=== PATIENT | female | born 1935 | race Caucasian/White ===

== ENCOUNTER → 2017-03-03 | Outpatient (CLI) | payer MEDICARE, BC ==
--- NOTE | 2017-03-11 09:52 | MM ---
Reason for exam: history of breast cancer, conservation therapy. Last mammogram was performed 1 year ago. History: Patient is postmenopausal and has history of breast cancer at age 76. Lumpectomy of the left breast, 2011. Chemotherapy, 2011. Radiation therapy of the left breast, 2011. Physical Findings: Nurse did not find any significant physical abnormalities on exam. MG 3D Diag Mammo W/Cad TARAS Bilateral CC and MLO view(s) were taken. Prior study comparison: February 28, 2016, mammogram, performed at [place]. September 09, 2015, mammogram, performed at [place]. The breast tissue is heterogeneously dense. This may lower the sensitivity of mammography. Finding #1: There is stable architectural distortion in the left breast consistent with known excisional biopsy. Finding #2: There are typically benign round calcifications in both breasts. Previous mammotome biopsy in the left breast. There is no discrete abnormality. These results were verbally communicated with the patient on 03/11/17. ASSESSMENT: Benign, BI-RAD 2 RECOMMENDATION: Follow-up diagnostic mammogram of both breasts in 1 year.
== END | disposition home or self-care (01) ==
LOC: RADMAMWWP 13:39
PROVIDERS: ATTEND Internal Medicine Hematology & Oncology
DX: Z85.3 Personal history of malignant neoplasm of breast (principal)
CPT/HCPCS: G0204; G0279

== ENCOUNTER → 2018-03-04 | Outpatient (CLI) | payer BC, MEDICARE ==
--- NOTE | 2018-03-05 08:32 | MM ---
Reason for exam: additional evaluation requested from prior study. Last mammogram was performed 1 year ago. History: Patient is postmenopausal and has history of breast cancer at age 76. Lumpectomy of the left breast, 2011. Chemotherapy, 2011. Radiation therapy of the left breast, 2011. Took progesterone for 1 year beginning at age 48. Physical Findings: Nurse did not find any significant physical abnormalities on exam. MG 3D Diag Mammo W/Cad TARAS Bilateral CC and MLO view(s) were taken. Prior study comparison: March 03, 2017, bilateral MG 3d diag mammo w/cad TARAS. February 28, 2016, mammogram, performed at [place]. The breast tissue is heterogeneously dense. This may lower the sensitivity of mammography. Finding: There is an equal density (isodense), circumscribed, with partially obscured lobulated mass in the 12 o'clock middle position of the right breast. Previous mammotome biopsy in the left breast. There is a chronic nodularity in the right breast. Asymmetric breast tissue greater in the right breast. New finding since March 03, 2017 and February 28, 2016. These results were verbally communicated with the patient and result sheet given to the patient on 03/04/18. ASSESSMENT: Incomplete: need additional imaging evaluation, BI-RAD 0 RECOMMENDATION: Ultrasound of the right breast.
--- NOTE | 2018-03-05 08:33 | USB ---
Reason for exam: additional evaluation requested from abnormal screening. History: Patient is postmenopausal and has history of breast cancer at age 76. Lumpectomy of the left breast, 2012. Chemotherapy, 2012. Radiation therapy of the left breast, 2012. Took progesterone for 1 year beginning at age 48. US Breast Limited RT Right breast ultrasound demonstrates a 4 x 4 x 4mm oval, cystic lesion at 12 o'clock and a 9 x 6 x 8mm oval, cystic lesion at 1 o'clock, 3.5cm from nipple. These results were verbally communicated with the patient and result sheet given to the patient on 03/04/18. ASSESSMENT: Probably benign, BI-RAD 3 RECOMMENDATION: Follow-up diagnostic mammogram of the right breast in 6 months.
== END | disposition home or self-care (01) ==
LOC: RADMAMWWP 12:53
PROVIDERS: ATTEND Internal Medicine Hematology & Oncology
DX: Z08 Encounter for follow-up examination after completed treatment for malignant neoplasm (principal); Z85.3 Personal history of malignant neoplasm of breast
CPT/HCPCS: 77066; 76642; G0279

== ENCOUNTER 2018-06-02 11:25 | Inpatient (IN) | payer MEDICARE, BC ==
[2018-06-02] MEDS ORDERED: MECLIZINE 12.5 MG TAB PO STA (12:48)
--- NOTE | 2018-06-02 12:53 | ED ---
General Adult HPI - General Chief complaint: Fall Stated complaint: Fell in shower Time Seen by Provider: 06/02/18 12:00 Source: patient, RN notes reviewed Mode of arrival: wheelchair Limitations: no limitations - History of Present Illness Initial comments: This is a 3-year-old female who came in for evaluation of dizziness and fall. She states she had the onset of dizziness this morning. He states he fell sometime during the night and had difficulty getting up later when shopping and then after being in a pool been in the shower she fell in the shower she hit her head she denies having loss of consciousness she denies any head neck or back pain loss of function to her upper or lower extremities she just generally feels weak. She has no recent history of cold or flu or strokes. - Related Data Home Medications Medication Instructions Recorded Confirmed Gabapentin [Neurontin] 300 mg PO TID 06/02/18 06/02/18 Allergies Allergy/AdvReac Type Severity Reaction Status Date / Time Penicillins Allergy Unknown Verified 06/02/18 12:42 Sulfa (Sulfonamide Allergy Unknown Verified 06/02/18 12:42 Antibiotics) Review of Systems ROS Statement: Those systems with pertinent positive or pertinent negative responses have been documented in the HPI. ROS Other: All systems not noted in ROS Statement are negative. Past Medical History Additional Past Medical History / Comment(s): neuropathy History of Any Multi-Drug Resistant Organisms: None Reported Past Surgical History: Appendectomy Past Psychological History: No Psychological Hx Reported Smoking Status: Never smoker Past Alcohol Use History: None Reported Past Drug Use History: None Reported General Exam - General Exam Comments Initial Comments: This is a well-developed well-nourished awake alert oriented 3 female Limitations: no limitations General appearance: alert, in no apparent distress Head exam: Present: atraumatic, normocephalic, normal inspection Eye exam: Present: normal appearance, PERRL, EOMI. Absent: scleral icterus, conjunctival injection, periorbital swelling ENT exam: Present: mucous membranes dry Neck exam: Present: normal inspection. Absent: tenderness, meningismus, lymphadenopathy Respiratory exam: Present: normal lung sounds bilaterally. Absent: respiratory distress, wheezes, rales, rhonchi, stridor Cardiovascular Exam: Present: regular rate, normal rhythm, normal heart sounds. Absent: systolic murmur, diastolic murmur, rubs, gallop, clicks GI/Abdominal exam: Present: soft, normal bowel sounds. Absent: distended, tenderness, guarding, rebound, rigid Extremities exam: Present: normal inspection, full ROM, normal capillary refill. Absent: tenderness, pedal edema, joint swelling, calf tenderness Back exam: Present: normal inspection Neurological exam: Present: alert, oriented X3, CN II-XII intact Psychiatric exam: Present: normal affect, normal mood Skin exam: Present: warm, dry, intact, normal color. 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 Interval to 10 QRS duration 116 daily since QTC 348/428 left exodeviation poor R-wave progression artifact is present) Disposition Referrals: Artis Mata MD [Primary Care Provider] - 1-2 days
[2018-06-02 13:21] LABS: Basophils % (A) 0 %; Eosinophils % (A) 0 %; HCT 45.1 % (34.0-46.0); HGB 15.1 gm/dL (11.4-16.0); Lymphocytes # (A) 0.7 k/uL (1.0-4.8); Lymphocytes % (A) 8 %; MCH 33.2 pg (25.0-35.0); MCHC 33.6 g/dL (31.0-37.0); MCV 98.8 fL (80.0-100.0); Mean Platelet Volume 7.6; Monocytes # (A) 0.5 k/uL (0-1.0); Monocytes % (A) 6 %; Neutrophils % (A) 85 %; Platelet Count 175 k/uL (150-450); RBC 4.57 m/uL (3.80-5.40); WBC 9.4 k/uL (3.8-10.6)
[2018-06-02 13:32] LABS: ALT 26 U/L (9-52); AST 33 U/L (14-36); Albumin 4.9 g/dL (3.5-5.0); Alkaline Phosphatase 46 U/L (38-126); Amylase 49 U/L (30-110); Anion Gap 13 mmol/L; Blood Urea Nitrogen 13 mg/dL (7-17); Calcium 9.6 mg/dL (8.4-10.2); Carbon Dioxide 26 mmol/L (22-30); Chloride 96 mmol/L (98-107); Glucose 100 mg/dL (74-99); Lipase 28 U/L (23-300); Magnesium 2.1 mg/dL (1.6-2.3); Potassium 4.5 mmol/L (3.5-5.1); Sodium 135 mmol/L (137-145); Total Bilirubin 0.9 mg/dL (0.2-1.3); Total Protein 7.6 g/dL (6.3-8.2)
[2018-06-02 13:52] LABS: Creatine Kinase 87 U/L (30-135)
[2018-06-02 13:56] LABS: Glucose,Whole Blood 100 mg/dL (75-99)
--- NOTE | 2018-06-02 13:56 | XR ---
EXAMINATION TYPE: XR chest 2V DATE OF EXAM: 06/02/2018 COMPARISON: NONE HISTORY: Weakness TECHNIQUE: Frontal and lateral views of the chest are obtained. FINDINGS: There is no focal air space opacity, pleural effusion, or pneumothorax seen. The cardiac silhouette size is upper limits of normal. Pulmonary hyperinflation may be on the basis of underlyin g COPD. The osseous structures are intact. There is diffuse osseous demineralization. IMPRESSION: No acute cardiopulmonary process.
--- NOTE | 2018-06-02 14:00 | CT ---
EXAMINATION TYPE: CT brain wo con DATE OF EXAM: 06/02/2018 COMPARISON: None HISTORY: Fell in shower, trauma and pain CT DLP: 1058 mGycm Automated exposure control for dose reduction was used. Helical acquisition through the brain. FINDINGS: Insular cortex on the right shows decreased attenuation as compared to the left, there is f ocal low attenuation somewhat increased in size as compared to the left. Cortical atrophy is likely age-related. Calvarium is intact. Orbits show symmetric appearance. Mastoid air cells and paranasal s inuses are well aerated. Periventricular white matter shows patchy low attenuation. No hemorrhage or hydrocephalus. Lacunar infarcts suspected within the putamen on the left appears chronic. IMPRESSION: DIFFICULT TO EXCLUDE SUBACUTE INFARCT, BRAIN MRI MAY BE OF BENEFIT, CORRELATE. NO ACUTE HEMORRHAGE. T HERE ARE CHANGES OF CHRONIC SMALL VESSEL ISCHEMIA, AGE RELATED ATROPHY.
[2018-06-02 14:03] LABS: Creatine Kinase MB 0.6 ng/mL (0.0-2.4); Troponin I <0.012 ng/mL (0.000-0.034)
[2018-06-02 14:35] LABS: Amorphous Sediment,Urine Rare /hpf; Appearance,Urine Clear (Clear); Bilirubin,Urine Negative (Negative); Blood,Urine Negative (Negative); Color,Urine Yellow; Glucose,Urine (UA) Negative (Negative); Ketones,Urine Negative (Negative); Leukocyte Esterase,Urine Trace (Negative); Mucus,Urine Rare /hpf; Nitrite,Urine Negative (Negative); PH, Urine 6.5 (5.0-8.0); Protein,Urine Trace (Negative); Specific Gravity,Urine 1.014 (1.001-1.035); Urobilinogen,Urine <2.0 mg/dL (<2.0); WBC,Urine 3 /hpf (0-5)
[2018-06-02 18:37] VITALS: BMI 23.9
[2018-06-02] MEDS ORDERED: ALPRAZolam 0.25 MG TAB PO PRN (21:11)
[2018-06-02] MEDS ORDERED: ONDANSETRON 4 MG/2 ML VIAL IVP PRN (21:11)
[2018-06-02] MEDS ORDERED: MELATONIN 3 MG TABLET PO PRN (21:11)
[2018-06-02] MEDS ORDERED: MAGNESIUM HYDROXIDE 2,400 MG/10 ML CUP PO PRN (21:11)
[2018-06-02] MEDS ORDERED: LACTULOSE 20 GM/30 ML CUP PO PRN (21:11)
[2018-06-02] MEDS ORDERED: CALCIUM CARBONATE 500 MG CHEWABLE PO PRN (21:11)
[2018-06-02] MEDS: ACETAMINOPHEN TAB 325 MG TAB PO PRN (22:05)
[2018-06-02] MEDS: GABAPENTIN 300 MG CAP PO SCH (22:05)
--- NOTE | 2018-06-02 23:09 | HP ---
HISTORY AND PHYSICAL DATE OF SERVICE: 06/02/2018 PRESENTING COMPLAINT: Passed out. HISTORY OF PRESENTING COMPLAINT: This is a pleasant 83-year-old patient of Dr. Mata. Chronic stable medical conditions include hypothyroid, depression, possible neuropathy. Patient was brought in through the ER. Patient has been having some dizziness; she says she got dizzy and fell out of bed but really could not give much detail. Also she fell in the shower, hit her head. Denied any loss of consciousness, but she is somewhat distant and vague about the same. Denies any chest pain or palpitation. No fever or chills. The patient is slightly forgetful. Denies any weakness in the arms or legs. No change in vision. No change in speech. CT scan of the brain in the ER was questionable about a stroke. REVIEW OF SYSTEMS: CONSTITUTIONAL: Tired. HEENT: None. RESPIRATORY: None. CARDIOVASCULAR: None. GASTROINTESTINAL: None. GENITOURINARY: None. MUSCULOSKELETAL: None. DERMATOLOGICAL: None. HEMATOLOGICAL: None. LYMPHATICS: None. PSYCHIATRY: Forgetful. NEUROLOGICAL: As above. No focal symptoms. PAST MEDICAL HISTORY: 1. Hypothyroid. 2. Possible peripheral neuropathy. 3. Depression. PAST SURGICAL HISTORY: 1. Appendectomy. 2. Right ovary removed. SOCIAL HISTORY: Does not smoke or drink alcohol. Lives by herself. FAMILY HISTORY: Reviewed. Noncontributory to presentation. HOME MEDICATIONS: 1. Zoloft 25 mg a day. 2. Synthroid 100 mcg a day. 3. Neurontin 300 mg 3 times a day. ALLERGIES: PENICILLIN and SULFA. PHYSICAL EXAMINATION: VITAL SIGNS ON PRESENTATION: Temperature 98.6, pulse 94, respiration 16, blood pressure 130/73, pulse ox 96% on room air. GENERAL APPEARANCE: Average build. Sitting up. A bit tired-appearing. EYES: Pupils equal. Conjunctivae normal. HEENT: External appearance of nose and ears normal. Oral cavity normal. NECK: JVD not raised. Mass not palpable. RESPIRATORY: Effort normal. Lungs are clear. CARDIOVASCULAR: First and second sounds normal. No edema. ABDOMEN: Soft, nontender. Liver and spleen not palpable. LYMPHATIC: No lymph node palpable in neck or axillae. PSYCHIATRY: Patient knows that she is in the hospital, the year and the month, but is somewhat vague about a lot of questions. NEUROLOGICAL: Pupils equal. No facial asymmetry. Power and sensation grossly intact. INVESTIGATIONS: White count 9.4, potassium 4.5. BUN and creatinine are normal. CT scan of the brain: Cannot rule out a subacute infarct; some age-related atrophy. EKG with poor R-wave progression, some intraventricular block. ASSESSMENT: 1. This is a patient who presented with history of a couple of falls earlier today; somewhat vague about the whole presentation; is not sure if she actually passed out. Patient may well have had a stroke. Of course, seizure was in the differential. 2. Hypothyroid. 3. Depression not otherwise specified. 4. Rule out orthostatics. PLAN: Patient will be put on aspirin. Home medications will be resumed. Will check patient's orthostatics. Will do an MRI of the brain, carotid Doppler, and also order an EEG. Neuro checks are in place and fall precautions. Care was discussed with the patient. No family is present. MMODL / IJN: [id number] /
[2018-06-02] MEDS: ASPIRIN 325 MG TAB PO SCH (23:27)
[2018-06-02] MEDS: ENOXAPARIN 40 MG/0.4 ML SYRINGE SQ SCH (23:27)
[2018-06-03 03:31] LABS: T4, Free (Free Thyroxine) 1.66 ng/dL (0.78-2.19)
[2018-06-03] MEDS ORDERED: LEVOTHYROXINE 100 MCG TAB PO SCH (06:30)
[2018-06-03] MEDS: GABAPENTIN 300 MG CAP PO SCH ×3 (07:59→21:05)
[2018-06-03] MEDS: ASPIRIN 325 MG TAB PO SCH (07:59)
[2018-06-03] MEDS ORDERED: SERTRALINE 25 MG TAB PO SCH (09:00)
--- NOTE | 2018-06-03 12:28 | EEG ---
ELECTROENCEPHALOGRAM REPORT DATE OF SERVICE: 06/03/2018. REASON FOR TESTING: Dizziness, stroke, altered mental status. DESCRIPTION OF PROCEDURE: This EEG was performed using a 21 channel digital electroencephalograph, following international 10-20 system. DESCRIPTION OF THE RECORDING: From the beginning of the tracing, with patient's eyes closed, the background rhythm was mostly consisting of 8 Hz alpha frequency in the posterior occipital leads. Asymmetry is noticed with muscle artifacts, as there is more muscle artifacts on the right compared to the left. Photic stimulation was performed with no driving response seen. No pathological waves were elicited. Hyperventilation was not performed. Recurrent spike and slow wave activity is noticed, mainly in the right frontal bleed. This does not generalize. The patient remains awake throughout the tracing. Her EKG lead showed a regular rate and rhythm. INTERPRETATION: This awake EEG is abnormal due to the presence of recurrent spike and slow wave activity mainly seen in the right frontal lead, consistent with epileptic activity. No generalized epileptiform discharges were seen. Clinical correlation is recommended. MMMONICAL / IJN: [id number] /
[2018-06-03] MEDS ORDERED: levETIRAcetam IV 500 MG in SODIUM CHLORIDE 0.9% 100 ML IVPB STA (12:55)
--- NOTE | 2018-06-03 15:19 | CONS ---
CONSULTATION DATE OF CONSULTATION: 06/03/18. CHIEF COMPLAINT: Possible stroke. HISTORY OF PRESENT ILLNESS: Mrs. Nielsen is a pleasant 83-year-old female who is being evaluated by the neurology service for Dr. Schneider for a possible stroke. The patient was brought into [facility] Emergency Room with a main complaint of dizziness and possible passing out. The patient states that she became quite dizzy yesterday and she describes the dizziness as an off-balance sensation. She states that she fell out of her bed but does not recall if she lost consciousness or not. In the emergency room, she was still complaining of the dizziness. She also reported that she had fell in her shower a couple of days ago but denies any loss of consciousness. She does not recall if she was dizzy then. In the emergency room, a CT scan of the brain was done, which showed a possible hypoattenuation involving the right insular cortex. There was also generalized atrophy and small-vessel ischemic changes. Her CBC and cardiac enzymes were normal. Her comprehensive metabolic profile was normal except for minimal hyponatremia at 135. Her TSH was low at 0.393 but her free T4 level was normal. Her urinalysis showed 3 WBCs with trace leukocyte esterase. She did have an EEG today and I did review this study which did show occasional spike and slow wave activity mainly involving the right frontal leads. The patient denies any history of seizures. At the time of my evaluation, she is lying in her bed and appears to be in no acute distress. She denies any changes in her symptoms. She still feels somewhat off balance and this worsens when she closes her eyes. 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 PAST MEDICAL HISTORY: Breast cancer, peripheral polyneuropathy chemotherapy-induced, hypothyroidism, depression, history of left breast lumpectomy, right ovary resection, appendectomy. SOCIAL HISTORY: She denies any tobacco, alcohol or drug use. The patient lives alone. FAMILY HISTORY: Noncontributory. HOME MEDICATIONS: Reviewed in the chart. ALLERGIES: SULFA AND PENICILLIN. REVIEW OF SYSTEMS: CONSTITUTIONAL: Negative. EYES: Negative. ENT: As mentioned above. CARDIOVASCULAR: Negative. RESPIRATORY: Negative. NEUROLOGICAL: As mentioned above. She denies any lateralizing numbness or weakness. GASTROINTESTINAL: Negative. GENITOURINARY: Negative. PSYCHIATRIC: Positive for history of depression. ENDOCRINE: Positive for hypothyroidism. DERMATOLOGICAL: Negative. MUSCULOSKELETAL: Positive for occasional joint pain. PHYSICAL EXAM: Vital signs show a temperature of 97.2, pulse 69, respirations 16, blood pressure 110/52. GENERAL APPEARANCE: The patient is a well-developed, elderly female, who appears to be in no acute distress. HEENT: Normocephalic, atraumatic. No facial asymmetry is seen. NECK: Supple with no masses felt. CARDIOVASCULAR: Regular rate and rhythm. ABDOMEN: Nontender nondistended. EXTREMITIES: Showed no edema or clubbing. NEUROLOGICAL EXAM: The patient is a well awake alert and oriented x3. She does appear to have a flat affect. Speech and language are normal. Strength is full in all 4 extremities. No pronator drift is seen. Sensory exam showed diminished light touch sensation in bilateral distal lower extremities. No facial asymmetry is seen on cranial nerve testing. No seizure-like activity is noticed. IMPRESSION: 1. Abnormal CT scan of the brain, possible stroke, right insular cortex. 2. Altered mental status. 3. Dizziness. 4. Neuropathy. 5. Abnormal EEG with spike and slow wave activity. RECOMMENDATION: The patient's CT scan of the brain and EEG findings are concerning for intracranial abnormalities. An MRI of the brain with contrast will be ordered. Due to her symptoms and altered mental status/flat affect, I will start her on Keppra at a low dose. I will load her with Keppra 500 mg IV and will maintain her on Keppra 250 mg p.o. b.i.d. Continue neuro checks. Continue aspirin. I will continue to follow with you. Further recommendations to follow. Thank you for allowing me to participate in the care of your patient. If you have any questions, please feel free to contact me. MMODL / IJN: [id number] /
--- NOTE | 2018-06-03 18:25 | PN ---
PROGRESS NOTE DATE OF SERVICE: 06/03/2018 PRESENTING COMPLAINT: Passed out. INTERVAL HISTORY: Patient presented with 2 episodes of passing out, dizzy, lightheaded. Dr. Oswald spoke to me, the EEG showing some seizure activity in the frontal lobe. Patient is pending an MRI. Otherwise, tolerating a diet. Sitting up. REVIEW OF SYSTEMS: Done for constitutional, cardiovascular, GI, pulmonary; relevant findings as above. CURRENT MEDICATIONS: Reviewed that include Keppra 250 mg p.o. q.12. EXAMINATION: Temperature 97.2, pulse 59, respirations 16, blood pressure 110/52, pulse ox 98% on room air. GENERAL APPEARANCE: Sitting on bed, awake. EYES: Pupils equal. Conjunctivae appeared normal. HEENT: External appearance of nose and ears normal. Oral cavity normal. NECK: JVD not raised. Mass not palpable. RESPIRATORY: Effort normal. Lungs are clear. CARDIOVASCULAR: First and second sounds normal. No edema. ABDOMEN: Soft, nontender. Liver and spleen not palpable. PSYCHIATRY: Answering questions. INVESTIGATIONS: TSH is 0.393, free T4 is 1.66. EEG: Seizure activity in the right frontal lobe. ASSESSMENT: 1. Seizure activity detected in the right frontal lobe. Need to know if this is area of ischemia or tumor underlying there. 2. Depression, not otherwise specified. 3. Hypothyroid with some over-replacement. TSH is rather low. PLAN: At this point, patient will get an MRI. Will cut back the dose of Synthroid to 75. Care was discussed with the patient. Given the side effect of Zoloft causing seizures itself, will discontinue the same. MMODL / IJN: [id number] /
[2018-06-03] MEDS: ACETAMINOPHEN TAB 325 MG TAB PO PRN (19:40)
[2018-06-03] MEDS: ENOXAPARIN 40 MG/0.4 ML SYRINGE SQ SCH (19:41)
[2018-06-03 20:55] LABS: Glucose,Whole Blood 132 mg/dL (75-99)
[2018-06-03] MEDS: levETIRAcetam 250 MG TAB PO SCH (21:05)
[2018-06-04] MEDS: ACETAMINOPHEN TAB 325 MG TAB PO PRN (03:53)
[2018-06-04 05:51] LABS: Glucose,Whole Blood 140 mg/dL (75-99)
[2018-06-04] MEDS: LEVOTHYROXINE 75 MCG TAB PO SCH (06:04)
[2018-06-04] MEDS: ASPIRIN 325 MG TAB PO SCH (08:02)
[2018-06-04] MEDS: GABAPENTIN 300 MG CAP PO SCH ×3 (08:02→21:10)
[2018-06-04] MEDS: levETIRAcetam 250 MG TAB PO SCH ×2 (08:02→21:10)
[2018-06-04 11:56] LABS: Glucose,Whole Blood 145 mg/dL (75-99)
--- NOTE | 2018-06-04 12:29 | MR ---
EXAMINATION TYPE: MR brain wo/w con DATE OF EXAM: 06/04/2018 COMPARISON: Prior CT brain 06/02/2018 HISTORY: Abnormal head CT, left breast cancer, trauma TECHNIQUE: Multiplanar, multisequence images of the brain and brainstem is performed without and with IV contras t, utilizing 6.5 mL intravenous Gadavist . FINDINGS: Diffusion weighted images demonstrate restricted diffusion along the insular cortex on the right extending along the right medial temporal lobe. Corresponding increased signal noted on inversi on recovery and T2-weighted sequences compatible with edema, intermediate signal on T1 images. Conflu ent and scattered hyperintensities are present in the periventricular and deep white matter on invers ion recovery and T2-weighted sequences compatible with chronic small vessel ischemia, there is likely age-related atrophy. There is no extra-axial fluid collection. The ventricular system and cisternal spaces are normal in size and appearance. The brain volume is age appropriate. Midline structures demonstrate normal morphology. The craniocervical junction appears within normal limits. Post contrast images demonstrate enhancement along the affected area, right insular cortex, gyriform enhancement noted. The dural venous sinuses appear patent. The visualized sinuses are clear and the globes are intact. IMPRESSION: Findings compatible with cerebrovascular accident as described. Chronic small vessel isch emia changes also noted.
--- NOTE | 2018-06-04 14:54 | US ---
EXAMINATION TYPE: US carotid duplex BILAT DATE OF EXAM: COMPARISON: None CLINICAL HISTORY: 83-year-old female CVA. Poor historian. No HTN, no memory loss. TECHNIQUE: Carotid duplex ultrasound examination. Indirect Doppler criteria was utilized. FINDINGS: EXAM MEASUREMENTS: RIGHT: Peak Systolic Velocity (PSV) cm/sec ----- Right CCA: 78.9 ----- Right ICA: 65.4 ----- Right ECA: 91.9 ICA/CCA ratio: 0.8 RIGHT: End Diastole cm/sec ----- Right CCA: 15.0 ----- Right ICA: 13.0 ----- Right ECA: 7.6 LEFT: Peak Systolic Velocity (PSV) cm/sec ----- Left CCA: 89.9 ----- Left ICA: 94.3 ----- Left ECA: 77.3 ICA/CCA ratio: 1.0 LEFT: End Diastole cm/sec ----- Left CCA: 17.2 ----- Left ICA: 24.9 ----- Left ECA: 4.9 VERTEBRALS (direction of flow): Right Vertebral: Antegrade Left Vertebral: Antegrade Rhythm: Normal Search Developer notes: Bilateral wall thickening. Plaque seen in left bulb. No elevated velocities or s ignificant stenosis. IMPRESSION: No hemodynamically significant stenosis appreciated in either internal carotid artery. Criteria for Assigning % of Stenosis / Diameter reduction (Estimation based on the indirect measurements of the internal carotid artery velocities (ICA PSV). 1. Normal (no stenosis)=ICA PSV < 125 cm/s: ratio < 2.0: ICA EDV<40 cm/s. 2. Less than 50% stenosis=ICA PSV < 125 cm/s: ratio < 2.0: ICA EDV<40 cm/s. 3. 50 to 69% stenosis=ICA PSV of 125 to 230 cm/s: ration 2.0 ? 4.0: ICA EDV 40-100 cm/s. 4. Greater than 70% stenosis to near occlusion= ICA PSV > 230 cm/s: ratio > 4.0: ICA EDV > 100 cm/s. 5. Near occlusion= ICA PSV velocities may be low or undetectable: variable ratio and ICA EDV. 6. Total occlusion=unable to detect flow.
[2018-06-04 15:10] LABS: Cholesterol 208 mg/dL (<200); HDL Cholesterol 70 mg/dL (40-60); LDL Cholesterol,Calculated 126 mg/dL (0-99); Triglycerides 58 mg/dL (<150)
--- NOTE | 2018-06-04 15:23 | P.PN ---
Subjective Progress Note Date: 06/04/18 Principal diagnosis: Stroke This pleasant 83-year-old male continuingly evaluated by the neurology service for stroke. Her main complaint was that of dizziness and a possible syncopal episode. She continues to complain of some dizziness/off- balance feeling. Initial CT in the emergency room showed possible hypoattenuation of the right insular cortex. Subsequent MRI does show an infarct in this area. She was found to have a mild urinary tract infection also. She had an EEG during which staff reported probable seizure activity. Her EEG did show likely epileptiform waves in the right frontal leads. She denied history of seizures. She was started on Keppra and has had no seizure activity since. At the time of my exam she is being evaluated by occupational therapy and is still quite off balance. Carotid Doppler was performed and showed no hemodynamically significant stenosis. Objective - Vital Signs Vital signs: Vital Signs Temp 98.8 F 06/04/18 12:00 Pulse 82 06/04/18 12:00 Resp 16 06/04/18 12:00 BP 158/73 06/04/18 12:00 Pulse Ox 95 06/04/18 12:00 Intake & Output 06/03/18 06/04/18 06/04/18 18:59 06:59 18:59 Intake Total 480 10 Output Total 75 Balance 480 -65 Weight 62.4 kg Intake: IV 10 .9 10 Oral 480 Output: Urine 75 Other: Voiding Method Toilet Toilet # Voids 1 1 # Bowel Movements 1 - Constitutional General appearance: Present: average body habitus, cooperative, no acute distress - EENT Eyes: Present: EOMI, PERRLA. Absent: abnormal pupil, ptosis ENT: Present: hearing grossly normal - Neck Neck: Present: normal ROM. Absent: rigidity - Respiratory Respiratory: negative: prolonged expiration, prolonged inspiration - Cardiovascular Rhythm: regular - Gastrointestinal General gastrointestinal: Absent: distended, tenderness - Neurologic Neurologic Comment(s): She is awake and alert and oriented 3. Her speech and language are normal. There is no facial asymmetry. She continues to have somewhat flat affect. Strength is full in bilateral upper extremities and full in bilateral lower extremities with some fatiguing. There is no pronator drift. She has some mild sensory deficit in bilateral distal lower extremities. No tremors or seizure-like activities are seen. There is no dysmetria or dysdiadochokinesia - Labs CBC & Chem 7: 06/02/18 12:23 06/02/18 12:23 Labs: Abnormal Lab Results - Last 24 Hours (Table) 06/03/18 06/04/18 06/04/18 Range/Units 20:53 05:48 11:46 POC Glucose (mg/dL) 132 H 140 H 145 H (75-99) mg/dL Cholesterol (<200) mg/dL LDL Cholesterol, Calc (0-99) mg/dL HDL Cholesterol (40-60) mg/dL 06/04/18 Range/Units 14:41 POC Glucose (mg/dL) (75-99) mg/dL Cholesterol 208 H (<200) mg/dL LDL Cholesterol, Calc 126 H (0-99) mg/dL HDL Cholesterol 70 H (40-60) mg/dL Microbiology - Last 24 Hours (Table) 06/02/18 14:15 Urine Culture - Final Urine,Clean Catch Assessment and Plan (1) Stroke Current Visit: Yes Status: Acute Code(s): I63.9 - CEREBRAL INFARCTION, UNSPECIFIED SNOMED Code(s): 755802560 (2) Secondary seizure disorder Current Visit: Yes Status: Acute Code(s): G40.909 - EPILEPSY, UNSP, NOT INTRACTABLE, WITHOUT STATUS EPILEPTICUS SNOMED Code(s): 386053070 (3) Vertigo Current Visit: Yes Status: Acute Code(s): R42 - DIZZINESS AND GIDDINESS SNOMED Code(s): 637669207 (4) Dyslipidemia Current Visit: Yes Status: Chronic Code(s): E78.5 - HYPERLIPIDEMIA, UNSPECIFIED SNOMED Code(s): 513782752 Plan: The patient has suffered an acute ischemic stroke in the right middle cerebral artery distribution. She continues to have some significant dizziness/ unsteadiness. Recommend continue to work with physical and occupational therapy. She does have somewhat of a flat affect which could be a product of her stroke. If this continues to be significant psychological consultation could be considered or done in outpatient setting. Continue aspirin. I have started Lipitor at 10 mg per day. Continue Keppra at current dose and monitor for any further seizure activity. We will follow her up in outpatient setting. Otherwise no further inpatient workup is needed. I have performed a history and physical on the above patient. I have reviewed the above note, and agree.
[2018-06-04 17:26] LABS: Glucose,Whole Blood 121 mg/dL (75-99)
[2018-06-04 20:32] LABS: Glucose,Whole Blood 103 mg/dL (75-99)
[2018-06-04] MEDS ORDERED: ATORVASTATIN 10 MG TAB PO SCH (21:00)
[2018-06-04] MEDS: ENOXAPARIN 40 MG/0.4 ML SYRINGE SQ SCH (21:10)
[2018-06-04] MEDS ORDERED: ATORVASTATIN 40 MG TAB PO SCH (23:00)
--- NOTE | 2018-06-04 23:17 | PN ---
PROGRESS NOTE DATE OF SERVICE: 06/04/2018 PRESENTING COMPLAINT: Passed out. INTERVAL HISTORY: This patient presented with two episodes of passing out. EEG has come back positive for seizures and MRI/MRA did show stroke in the right middle cerebral artery area. Patient has some weakness on the left side. PT/OT is recommending inpatient rehab. REVIEW OF SYSTEMS: Done for constitutional, cardiovascular, GI, pulmonary, neuro; relevant findings as above. CURRENT MEDICATIONS: These include Keppra and Plavix. PHYSICAL EXAMINATION: Temperature 99.3, pulse 82, respiration 16, blood pressure 116/56, pulse ox 99% on room air. GENERAL APPEARANCE: Lying in bed, tired-appearing. EYES: Pupils equal. Conjunctivae normal. HEENT: External appearance of nose and ears normal. Oral cavity normal. NECK: JVD not raised. Mass not palpable. RESPIRATORY: Effort normal. Lungs are clear. CARDIOVASCULAR: First and second sounds normal. No edema. ABDOMEN: Soft, non-tender. Liver and spleen not palpable. NEUROLOGICAL: Some weakness on the left side. INVESTIGATIONS: LDL 126. Carotid Doppler: No stenosis. MRI of the brain shows evidence of stroke on the right side. ASSESSMENT: 1. Acute stroke in the right middle cerebral artery area in a right-handed patient. 2. New diagnosis of seizure activity. 3. Depression not otherwise specified. 4. Hypothyroid with overreplacement. Dose of Synthroid has been cut back back. 5. CODE STATUS: DO NOT RESUSCITATE. PLAN: Will add Lipitor 40 mg. Patient is already on Keppra. Looking at patient going to inpatient rehab for therapy. Active assessment code status: Do not resuscitate. MMODL / IJN: [id number] /
[2018-06-05] MEDS: ACETAMINOPHEN TAB 325 MG TAB PO PRN (03:15)
[2018-06-05] MEDS: LEVOTHYROXINE 75 MCG TAB PO SCH (06:28)
[2018-06-05 06:59] LABS: Glucose,Whole Blood 137 mg/dL (75-99)
--- NOTE | 2018-06-05 08:11 | CT ---
CT brain without contrast HISTORY: Cerebrovascular accident Correlation to MR brain 06/04/[address] brain 06/02/2018 Helical acquisition through the brain. There has been interval progression in loss of pimentel-white differentiation along the right temporal lo be and insula. There is no evident hemorrhage. Some local edema is present, temporal horn of the righ t lateral ventricle is obscured. Some local mass effect is present. IMPRESSION: Progression in the abnormal appearance of patient's previously described cerebral vascula r accident as described
[2018-06-05] MEDS ORDERED: levETIRAcetam IV 1,000 MG in SALINE 1 100ML.BAG IVPB STA (08:24)
[2018-06-05] MEDS ORDERED: LORazepam 2 MG/ML INJ IV STA (08:25)
--- NOTE | 2018-06-05 08:50 | CT ---
EXAMINATION TYPE: CODE STROKE: CTA head neck DATE OF EXAM: 06/05/2018 HISTORY: Patient poor historian. Altered mental status. COMPARISON: CT brain same date CT DLP: 248.2 mGycm. Automated Exposure Control for Dose Reduction was Utilized. TECHNIQUE: CTA scan of the neck is performed with IV Contrast, patient injected with 60 mL of Isovue 370, axial images are obtained, coronal and sagittal reformatted images are reviewed. Three-D recons tructed images are created on an independent workstation and reviewed. FINDINGS: Carotid/Vascular Structures: Internal carotid arteries are patent, no significant stenosis of the pro ximal internal carotid arteries is evident. There is a somewhat beaded appearance of the internal car otid arteries bilaterally in the distal cervical portions, consider fibromuscular dysplasia, vasospas m. Transverse aorta, innominate, left and right subclavian arteries are patent. Common carotid and ex ternal carotid arteries are patent, 3 super aortic branch vessels are present. Left and right vertebr al arteries are patent. There is no evident embolus, dissection, or arteriovenous malformation. Circl e of Jamil shows patent anterior and posterior circulation. Other: Lung apices are essentially unremarkable. There is retained secretions seen within the esophag us. IMPRESSION: No evident dissection or embolus. There are findings in the internal carotid artery sugge sting possible fibromuscular dysplasia.
[2018-06-05 09:37] VITALS: RESP 16
--- NOTE | 2018-06-05 12:02 | P.GSCN ---
<Denise Hull - Last Filed: 06/05/18 11:48> History of Present Illness Consult date: 06/05/18 Reason for Consult: Questionable fibromuscular dysplasia on this morning's computed tomography scan , treatment recommendations. Requesting physician: Vega Orantes History of present illness: This is an 83-year-old previously independent patient of Dr. Mata. 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 She presented to [facility] emergency room on June 02 after a fall in the shower with loss of consciousness. Apparently this was her second fall within a week, she had fallen out of bed the day before. Upon regaining consciousness, she did state that she had been feeling very dizzy and weak for awhile but denied any other complaints. CT of the brain done in the emergency room could not exclude a subacute right insular cortex infarct. She was admitted for evaluation and treatment. EEG performed demonstrated slow activity in the right frontal lead. MRI of the brain demonstrated right insular cortex infarct extending into the temporal lobe. Carotid Dopplers completed demonstrated no significant stenosis. Repeat brain CT demonstrated progression of cerebrovascular accident seen on prior CT and MRI. This morning a code stroke was called on the patient as she was unresponsive. CTA of the brain was completed with radiology read for right internal carotid possible fibromuscular dysplasia and a consult was placed for Dr. Rayo for treatment recommendations. Review of Systems Review of systems was unable to be completed as the patient is unresponsive in the [id number] who is at the bedside does not have much to add. Past Medical History Past Medical History: Cancer, Thyroid Disorder Additional Past Medical History / Comment(s): neuropathy, breast cancer History of Any Multi-Drug Resistant Organisms: None Reported Past Surgical History: Appendectomy, Breast Surgery Additional Past Surgical History / Comment(s): (R) ovary removal. Past Anesthesia/Blood Transfusion Reactions: No Reported Reaction Past Psychological History: Depression Smoking Status: Never smoker Past Alcohol Use History: None Reported Past Drug Use History: None Reported Medications and Allergies Home Medications Medication Instructions Recorded Confirmed Type Gabapentin [Neurontin] 300 mg PO TID 06/02/18 06/02/18 History Levothyroxine Sodium [Synthroid] 100 mcg PO DAILY 06/02/18 06/02/18 History Sertraline [Zoloft] 25 mg PO DAILY 06/02/18 06/02/18 History Allergies Allergy/AdvReac Type Severity Reaction Status Date / Time Penicillins Allergy Unknown Verified 06/02/18 12:42 Sulfa (Sulfonamide Allergy Unknown Verified 06/02/18 12:42 Antibiotics) Surgical - Exam Vital Signs Temp Pulse Resp BP Pulse Ox 98.6 F 94 16 130/73 96 06/02/18 11:56 06/02/18 11:56 06/02/18 11:56 06/02/18 11:56 06/02/18 11:56 - General Unresponsive well developed, well nourished, no distress - Eyes PERRL - Neck no masses, no bruits, trachea midline - Respiratory Lungs sounds diminished bilaterally. Respirations even, nonlabored. Currently in 2 L nasal cannula with oxygen saturation of 2%. - Cardiovascular S1, S2 present. Regular rate and rhythm, sinus rhythm on telemetry. Palpable peripheral pulses bilaterally. No edema present. - Abdomen Abdomen: soft, bowel sounds - Genitourinary Deferred - Rectum Deferred - Integumentary no rash, no growths - Neurologic Patient is obtunded/unresponsive at this point in time. Does withdraw to painful stimuli to bilateral lower extremities. Does not respond to painful stimuli applied to bilateral upper extremities. Results - Labs 06/02/18 12:23 06/02/18 12:23 Abnormal Lab Results - Last 24 Hours (Table) 06/04/18 06/04/18 06/04/18 Range/Units 11:46 14:41 17:23 POC Glucose (mg/dL) 145 H 121 H (75-99) mg/dL Cholesterol 208 H (<200) mg/dL LDL Cholesterol, Calc 126 H (0-99) mg/dL HDL Cholesterol 70 H (40-60) mg/dL 06/04/18 06/05/18 Range/Units 20:31 06:55 POC Glucose (mg/dL) 103 H 137 H (75-99) mg/dL Cholesterol (<200) mg/dL LDL Cholesterol, Calc (0-99) mg/dL HDL Cholesterol (40-60) mg/dL Diabetes panel 06/04/18 Range/Units 14:41 Triglycerides 58 (<150) mg/dL HDL Cholesterol 70 H (40-60) mg/dL - Imaging Chest x-ray: report reviewed, image reviewed EKG: image reviewed Additional studies: CT of the brain, brain MRI, EEG results reviewed. Assessment and Plan (1) Hypothyroid Status: Chronic Code(s): E03.9 - HYPOTHYROIDISM, UNSPECIFIED SNOMED Code(s) : 78777897 (2) History of breast cancer Status: Resolved Code(s): Z85.3 - PERSONAL HISTORY OF MALIGNANT NEOPLASM OF BREAST SNOMED Code(s): 301791897 (3) History of depression Status: Chronic Code(s): Z86.59 - PERSONAL HISTORY OF OTHER MENTAL AND BEHAVIORAL DISORDERS SNOMED Code(s): 936935765 (4) Cerebral infarct Status: Acute Code(s): I63.9 - CEREBRAL INFARCTION, UNSPECIFIED SNOMED Code( s): 532763403 (5) Secondary seizure disorder Status: Acute Code(s): G40.909 - EPILEPSY, UNSP, NOT INTRACTABLE, WITHOUT STATUS EPILEPTICUS SNOMED Code(s): 310462213 (6) Dyslipidemia Status: Chronic Code(s): E78.5 - HYPERLIPIDEMIA, UNSPECIFIED SNOMED Code(s) : 132084461 Plan: The patient seen and examined at the bedside with Dr. Rayo. Chart/ diagnostics were reviewed. There is no focal stenosis in the carotid arteries and no vascular surgical treatment appropriate at this time. The patient is going to be transferred per primary service for neurosurgical evaluation, this is not an unreasonable decision. The patient's future condition remains very guarded, and this was discussed with the [id number] who is at the bedside. Continued medical management per primary care service. Thank you for this consult. Please call us with any questions. Time with Patient: Greater than 30 <Bryon Rayo - Last Filed: 06/09/18 08:49> History of Present Illness History of present illness: This patient was examined by me personally with the nurse practitioner. I reviewed the chart in detail. I reviewed the CT angiogram with radiology. Impression: #1 This patient has edema in the right temporal area. It is somewhat uncertain as to whether the initial origin is trauma or a CVA. #2 this patient has some irregularities in the right internal carotid at or near its origin. It is not classic for fibromuscular dysplasia. Regardless, there is not significant stenosis or abnormality towards intervention at this time. #3 given the significance of the intracranial edema and the patient's obtunded neurologic state, I would consider the prognosis to be very guarded. I do feel that transfer for neurosurgery assessment is appropriate. Given her advanced years, in spite of her preevent status, I am not terribly optimistic about the potential for neurosurgery intervention. I appreciate the operative participate in this patient's care. I would be happy to assist in any way if status changes in the future. Surgical - Exam Osteopathic Statement: *. No significant issues noted on an osteopathic structural exam other than those noted in the History and Physical/Consult. Vital Signs Temp Pulse Resp BP Pulse Ox 98.6 F 94 16 130/73 96 06/02/18 11:56 06/02/18 11:56 06/02/18 11:56 06/02/18 11:56 06/02/18 11:56 Results - Labs 06/02/18 12:23 06/02/18 12:23
[2018-06-05] MEDS ORDERED: DEXAMETHASONE SOD PHOSPHATE 10 MG/ML 1 ML VIAL IV STA (12:18)
[2018-06-05] MEDS: GABAPENTIN 300 MG CAP PO SCH ×2 (12:54→16:21)
[2018-06-05] MEDS: ASPIRIN 325 MG TAB PO SCH (12:54)
[2018-06-05 12:58] VITALS: PULSE 101
[2018-06-05] MEDS ORDERED: SODIUM CHLORIDE 0.9% IV ONE (14:42)
[2018-06-05] MEDS ORDERED: ACYCLOVIR SODIUM IV ONE (14:42)
--- NOTE | 2018-06-05 16:09 | DS ---
DISCHARGE SUMMARY DATE OF ADMISSION: 06/02/2018. DATE OF TRANSFER: 06/05/2018 FINAL DIAGNOSES: 1. Acute stroke in the right middle cerebral artery in a right-handed patient, worsening. 2. New diagnosis of epilepsy. 3. Depression not otherwise specified. 4. Hypothyroid with some over-replacement. Synthroid dose has been cut back. 5. 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 CONSULTATION: Dr. Oswald from Neurology. HOSPITAL COURSE: This is a pleasant 83-year-old patient of Dr. Mata whose chronic stable medical conditions include hypothyroid, depression, possible neuropathy. Patient presented with dizziness and falling out of bed. She had also fallen in the shower. There was no loss of consciousness, but the patient was a little bit distant and vague when she presented. There was no focal weakness to start off with. The patient's EEG did show seizure activity. Patient had an MRI of the brain that showed watershed findings on the right side of the brain in the temporal lobe area. Subsequently the patient had more alteration of sensorium this morning. CT scan of the brain showed some edema in the same area. CT angio was unremarkable. Carotid Doppler showed some fibromuscular dysplasia. Clinically the patient was far less responsive. I discussed with Dr. Oswald, and we decided to start the patient on acyclovir. Patient did have a low- grade fever and did actually go up to 101.6 this morning. I then spoke to patient's son and [id number], and for a higher level of care Dr. Oswald suggested [facility]. I spoke to Dr. Costello at [facility], the stroke fellow, and patient has been accepted there for higher level of care. On examination, plantars are equivocal. No focal weakness currently. Patient is minimally responsive to pain. Pupils are equal and reactive. No neck stiffness. The patient's LDL is 126. The patient's labs from this afternoon are pending. DISPOSITION: [facility] Stroke Unit, [facility], [address] [place] [address]. Discussion and discharge planning more than 35 minutes. MMODL / IJN: [id number] /
[2018-06-05 16:45] VITALS: BP 122/64; TEMP 100
[2018-06-05] MEDS ORDERED: DEXAMETHASONE SOD PHOSPHATE 4 MG/ML 1 ML VIAL IV PRN (20:00)
[2018-06-05] MEDS ORDERED: levETIRAcetam IV 750 MG in SODIUM CHLORIDE 0.9% 100 ML IVPB SCH (21:00)
== END 2018-06-05 18:17 | disposition short-term general hospital (02) | DRG 64 ==
LOC: EC 11:25 → 6SEL 16:30 → 4MS4W 06-04 12:12 → 6SEL 06-05 08:52
PROVIDERS: ADMIT Hospitalist; ATTEND Hospitalist
DX: I63.511 Cerebral infarction due to unspecified occlusion or stenosis of right middle cerebral artery (principal); B00.4 Herpesviral encephalitis; N39.0 Urinary tract infection, site not specified; G62.0 Drug-induced polyneuropathy; G40.909 Epilepsy, unspecified, not intractable, without status epilepticus; I45.4 Nonspecific intraventricular block; R29.733 NIHSS score 33; R40.2363 Coma scale, best motor response, obeys commands, at hospital admission; R40.2143 Coma scale, eyes open, spontaneous, at hospital admission; R40.2253 Coma scale, best verbal response, oriented, at hospital admission; Z66 Do not resuscitate; E03.9 Hypothyroidism, unspecified; E78.5 Hyperlipidemia, unspecified; F32.9 Major depressive disorder, single episode, unspecified; T45.1X5A Adverse effect of antineoplastic and immunosuppressive drugs, initial encounter; Z79.890 Hormone replacement therapy; Z79.899 Other long term (current) drug therapy; Z90.49 Acquired absence of other specified parts of digestive tract; Z85.3 Personal history of malignant neoplasm of breast; Z90.721 Acquired absence of ovaries, unilateral; Z88.0 Allergy status to penicillin; Z88.2 Allergy status to sulfonamides; W18.2XXA Fall in (into) shower or empty bathtub, initial encounter; Y93.E1 Activity, personal bathing and showering; W06.XXXA Fall from bed, initial encounter; Y92.003 Bedroom of unspecified non-institutional (private) residence as the place of occurrence of the external cause; Y92.002 Bathroom of unspecified non-institutional (private) residence as the place of occurrence of the external cause
CPT/HCPCS: 36415; 70450; 70496; 70498; 70553; 71046; 80053; 80061; 81001; 82150; 82550; 82553; 83090; 83690; 83735; 84439; 84443; 84484; 85025; 87086; 93005; 93880; 95819; 99285